=== PATIENT | male | born 1985 | race Caucasian/White ===

== ENCOUNTER → 2017-11-06 16:30 | Outpatient (CLI) | payer SELFPAY | END | disposition home or self-care (01) | LOC: D.LABREF 16:30 | DX: D17.79 Benign lipomatous neoplasm of other sites (principal) ==

== ENCOUNTER → 2020-03-17 16:06 | Outpatient (CLI) | payer SELFPAY | END | disposition home or self-care (01) | LOC: D.US 16:00 | PROVIDERS: ATTEND Nurse Practitioner | DX: N50.89 Other specified disorders of the male genital organs (principal) ==